=== PATIENT | female | born 1995 | race American Indian/Alaskan Native ===

== ENCOUNTER 2017-11-04 00:16 | Emergency (ER) | payer OTHER ==
[2017-11-04 00:39] VITALS: BP 123/84
[2017-11-04] MEDS ORDERED: Bacitracin Oint 1 GM U/D Packet TOP ONE (00:50)
--- NOTE | 2017-11-04 00:55 | EDM.PDOC ---
ED HPI GENERAL MEDICAL PROBLEM - General Chief Complaint: Lower Extremity Injury/Pain Stated Complaint: FELL [id number] Time Seen by Provider: 11/04/17 00:50 Source of Information: Reports: Patient History Limitations: Reports: No Limitations - History of Present Illness INITIAL COMMENTS - FREE TEXT/NARRATIVE: tripped fell onto left knee and injured foot also. prefer not to have x-rays done. 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 ED EXAM, GENERAL - Physical Exam Exam: See Below Exam Limited By: No Limitations General Appearance: Alert, WD/WN, No Apparent Distress Ears: Hearing Grossly Normal Throat/Mouth: Normal Voice, No Airway Compromise Head: Atraumatic Neck: Non-Tender, Full Range of Motion Respiratory/Chest: No Respiratory Distress Cardiovascular: Regular Rate, Rhythm GI/Abdominal: Soft, Non-Tender Extremities: Other (left knee contused with spfl abrasion, NV wnl, good ROM, left foot dorsum spfl abrasion good ROM, minimal swelling. gait limited to discomfort) Neurological: Alert, Oriented, Normal Cognition, No Motor/Sensory Deficits Psychiatric: Normal Affect, Normal Mood Skin Exam: Warm, Dry, Normal Color Lymphatic: No Adenopathy Course - Vital Signs Last Recorded V/S: Last Vital Signs Temp 36.4 C 11/04/17 00:32 Pulse 100 11/04/17 00:32 Resp 14 11/04/17 00:32 BP 123/84 11/04/17 00:32 Pulse Ox 100 11/04/17 00:32 Departure - Departure Time of Disposition: 00:52 Disposition: Home, Self-Care 01 Condition: Good Clinical Impression: Abrasion, foot w/o infection Contusion of knee, left Qualifiers: Encounter type: initial encounter Qualified Code(s): S80.02XA - Contusion of left knee, initial encounter Abrasion of knee, left Qualifiers: Encounter type: initial encounter Qualified Code(s): S80.212A - Abrasion, left knee, initial encounter - Discharge Information Instructions: Contusion, [id number] Additional Instructions: 1) keep wound clean dry 2) elevate leg as much as possible next few days 3) recheck as needed
== END 2017-11-04 01:04 | disposition home or self-care (01) ==
LOC: DL.ED 00:16
DX: S80.02XA Contusion of left knee, initial encounter (principal); W01.0XXA Fall on same level from slipping, tripping and stumbling without subsequent striking against object, initial encounter
CPT/HCPCS: 99282; 99283

== ENCOUNTER 2018-12-06 05:31 | Emergency (ER) | payer MEDICAID, OTHER ==
[2018-12-06 05:40] VITALS: BP 101/74; PULSE 88
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
== END 2018-12-06 06:43 | disposition home or self-care (01) ==
LOC: DL.ED 05:31
DX: S00.83XA Contusion of other part of head, initial encounter (principal); Z86.2 Personal history of diseases of the blood and blood-forming organs and certain disorders involving the immune mechanism; F17.210 Nicotine dependence, cigarettes, uncomplicated; Y04.0XXA Assault by unarmed brawl or fight, initial encounter
CPT/HCPCS: 70450; 70486; 81025; 99284-25

== ENCOUNTER 2019-10-26 15:56 | Emergency (ER) | payer MEDICAID, OTHER ==
[2019-10-26 16:26] VITALS: BP 147/63; PULSE 88
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
== END 2019-10-26 16:35 | disposition left against medical advice (07) ==
LOC: DL.ED 15:56
DX: S62.022A Displaced fracture of middle third of navicular [scaphoid] bone of left wrist, initial encounter for closed fracture (principal); T74.11XA Adult physical abuse, confirmed, initial encounter; S40.022D Contusion of left upper arm, subsequent encounter; S40.021D Contusion of right upper arm, subsequent encounter; S80.11XD Contusion of right lower leg, subsequent encounter; S80.12XD Contusion of left lower leg, subsequent encounter; S10.93XD Contusion of unspecified part of neck, subsequent encounter; S20.219D Contusion of unspecified front wall of thorax, subsequent encounter
CPT/HCPCS: 73110-LT; 99284

== ENCOUNTER 2020-06-02 13:45 | Emergency (ER) | payer MEDICAID ==
[2020-06-02 14:11] VITALS: BP 121/76; PULSE 98
--- NOTE | 2020-06-02 15:16 | EDM.PDOC ---
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 The patient states she is L1 with a LMP of 02/19/2020. The patient states she is approximately 8 weeks along via measurement taken on an ultrasound on 05/13/20, however with her LMP she should be approximately 15 weeks. The patient states she noted lower bilateral abdominal cramping this morning along with vaginal bleeding; she is passing clots, as well. She states she presented to the [facility] this morning when she first noted the bleeding and HCG and Hgb levels were drawn, however no US was performed. The patient states she continued to bleed into the afternoon and became worried so presented here. She denies recent illness, fever, shaking chills, fatigue, palpitations, nausea, vomiting, diarrhea, dysuria, or hematuria. She denies complications with her previous . She denies tobacco, alcohol, or recreational drug use. 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, Hematologic History: Reports: Anemia - Infectious Disease History Infectious Disease History: Reports: None - Past Surgical History GI Surgical History: Reports: None Social & Family History - Family History Family Medical History: No Pertinent Family History - Tobacco Use Tobacco Use Status *Q: Never Tobacco User - Caffeine Use Caffeine Use: Reports: Coffee Other Caffeine Use: red bull once in a while - Recreational Drug Use Recreational Drug Use: No - Living Situation & Occupation Living situation: Reports: with Significant Other Occupation: Unemployed ED ROS GENERAL - Review of Systems Review Of Systems: Comprehensive ROS is negative, except as noted in HPI. ED EXAM - Physical Exam Exam: See Below Exam Limited By: No Limitations General Appearance: Alert, No Apparent Distress, Thin, Other (Withdrawn) Eye Exam: Bilateral Eye: EOMI, Normal Inspection, PERRL (3mm) Throat/Mouth: Normal Inspection, Normal Voice, No Airway Compromise Head: Atraumatic, Normocephalic Neck: Normal Inspection, Supple, Non-Tender, Full Range of Motion Respiratory/Chest: No Respiratory Distress, Lungs Clear, Normal Breath Sounds, No Accessory Muscle Use, Chest Non-Tender Cardiovascular: Normal Peripheral Pulses, Regular Rate, Rhythm, No Edema, No Gallop, No JVD, No Murmur, No Rub GI/Abdominal Exam: Normal Bowel Sounds, Soft, Non-Tender, No Distention, No Mass, Pelvis Stable Rectal Exam: Deferred (Female) Exam: Vaginal Bleeding, Other (Speculum exam deferred due to spontaneous confirmed via US) Heart Tones: No: Not [place] (Did not check for tones as spontaneous was confirmed via US) Movement: Not Appreciated Back Exam: Normal Inspection, Full Range of Motion. No: CVA Tenderness (L), CVA Tenderness (R) Extremities: Normal Inspection, Normal Range of Motion, Non-Tender, Normal Capillary Refill, No Pedal Edema Neurological: Alert, Oriented, CN II-XII Intact, Normal Cognition, Normal Gait, No Motor/Sensory Deficits Psychiatric: Normal Affect, Depressed Mood, Tearful Skin Exam: Warm, Dry, Intact, Normal Color, No Rash. No: Ecchymosis, Erythema, Jaundice, Mottled, Pallor, Petechiae Course - Vital Signs Last Recorded V/S: Last Vital Signs Temp 98.4 F 06/02/20 14:07 Pulse 98 06/02/20 14:07 Resp 14 06/02/20 14:07 BP 121/76 06/02/20 14:07 Pulse Ox 100 06/02/20 14:07 - Orders/Labs/Meds Labs: Laboratory Tests 06/02/20 06/02/20 06/02/20 Range/Units 14:44 14:50 14:50 WBC 9.5 (5.0-10.0) 10^3/uL RBC 3.92 L (4.2-5.4) 10^6/uL Hgb 13.2 D (12.0-16.0) g/dL Hct 37.5 (37.0-47.0) % MCV 95.7 (80-100) fL MCH 33.7 (27.0-34.0) pg MCHC 35.2 H (33.0-35.0) g/dL Plt Count 311 D (150-450) 10^3/uL Neut % (Auto) 67.2 (42.2-75.2) % Lymph % (Auto) 22.7 (20.5-50.1) % [place] % (Auto) 7.7 (2-8) % Eos % (Auto) 2.0 (1.0-3.0) % Baso % (Auto) 0.4 (0.0-1.0) % Sodium (136-145) mmol/L Potassium (3.5-5.1) mmol/L Chloride (98-107) mmol/L Carbon Dioxide (21-32) mmol/L Anion Gap (7-13) mEq/L BUN (7-18) mg/dL Creatinine (0.55-1.02) mg/dL Est Cr Clr Drug Dosing mL/min Estimated GFR (MDRD) BUN/Creatinine Ratio (No establ ref range) Glucose (74-99) mg/dL Calcium (8.5-10.1) mg/dL Total Bilirubin (0.2-1.0) mg/dL AST (15-37) U/L ALT (14-59) U/L Alkaline Phosphatase (46-116) U/L Total Protein (6.4-8.2) g/dL Albumin (3.4-5.0) g/dL Globulin Albumin/Globulin Ratio HCG, Quant 4647 H (0-6) mIU/mL Urine Color Yellow (YELLOW) Urine Appearance Clear (CLEAR) Urine pH 7.0 (5.0-9.0) Ur Specific [place] 1.025 (1.005-1.030) Urine Protein Negative (NEGATIVE) Urine Glucose (UA) Negative (NEGATIVE) Urine Ketones Negative (NEGATIVE) Urine Occult Blood Large H (NEGATIVE) Urine Nitrite Negative (NEGATIVE) Urine Bilirubin Negative (NEGATIVE) Urine Urobilinogen 0.2 (0.2-1.0) mg/dL Ur Leukocyte Esterase Negative (NEGATIVE) Urine RBC 50-75 H /HPF Urine WBC Not seen (0-5/HPF) /HPF Ur Epithelial Cells Few (NOT SEEN) /HPF Urine Bacteria Rare (0-FEW/HPF) /HPF 06/02/20 Range/Units 14:50 WBC (5.0-10.0) 10^3/uL RBC (4.2-5.4) 10^6/uL Hgb (12.0-16.0) g/dL Hct (37.0-47.0) % MCV (80-100) fL MCH (27.0-34.0) pg MCHC (33.0-35.0) g/dL Plt Count (150-450) 10^3/uL Neut % (Auto) (42.2-75.2) % Lymph % (Auto) (20.5-50.1) % [place] % (Auto) (2-8) % Eos % (Auto) (1.0-3.0) % Baso % (Auto) (0.0-1.0) % Sodium 142 (136-145) mmol/L Potassium 4.0 (3.5-5.1) mmol/L Chloride 105 (98-107) mmol/L Carbon Dioxide 26 (21-32) mmol/L Anion Gap 15.0 H (7-13) mEq/L BUN 15 (7-18) mg/dL Creatinine 0.73 (0.55-1.02) mg/dL Est Cr Clr Drug Dosing 111.24 mL/min Estimated GFR (MDRD) > 60 BUN/Creatinine Ratio 20.5 (No establ ref range) Glucose 86 (74-99) mg/dL Calcium 8.3 L (8.5-10.1) mg/dL Total Bilirubin 0.3 (0.2-1.0) mg/dL AST 17 (15-37) U/L ALT 23 (14-59) U/L Alkaline Phosphatase 82 (46-116) U/L Total Protein 7.2 (6.4-8.2) g/dL Albumin 3.3 L (3.4-5.0) g/dL Globulin 3.9 Albumin/Globulin Ratio 0.85 HCG, Quant (0-6) mIU/mL Urine Color (YELLOW) Urine Appearance (CLEAR) Urine pH (5.0-9.0) Ur Specific [place] (1.005-1.030) Urine Protein (NEGATIVE) Urine Glucose (UA) (NEGATIVE) Urine Ketones (NEGATIVE) Urine Occult Blood (NEGATIVE) Urine Nitrite (NEGATIVE) Urine Bilirubin (NEGATIVE) Urine Urobilinogen (0.2-1.0) mg/dL Ur Leukocyte Esterase (NEGATIVE) Urine RBC /HPF Urine WBC (0-5/HPF) /HPF Ur Epithelial Cells (NOT SEEN) /HPF Urine Bacteria (0-FEW/HPF) /HPF - Re-Assessments/Exams Free Text/Narrative Re-Assessment/Exam: 06/02/20 Vaginal US confirms spontaneous ; gestation sac without pole appreciated, enlarged uterus largely empty. Hcg stable at 13.2. No evidence of infection as WBC 9.5 without left shift. UA unremarkable. Hcg low for approximate gestation at 4647. Tracie and her boyfriend were updated on the results of lab work and imaging, including the confirmation of spontaneous . All questions answered and red flags signs and symptoms which would warrant immediate reevaluation reviewed. Patient instructed to follow up with her primary care provider, or OBGYN, in seven days. Patient and boyfriend verbalized understanding and agreement with the plan of care. Departure - Departure Time of Disposition: 15:26 Disposition: Home, Self-Care 01 Condition: Good Clinical Impression: Spontaneous - Discharge Information *PRESCRIPTION DRUG MONITORING PROGRAM REVIEWED*: Not Applicable *COPY OF PRESCRIPTION DRUG MONITORING REPORT IN PATIENT ES: Not Applicable Instructions: Miscarriage, [id number], Managing Loss Forms: ED Department Discharge Additional Instructions: 1.) Follow up with your primary care provider, or OBGYN, in seven days regarding today's visit for recheck of labs and imaging (as warranted). 2.) Should you begin to experience significant bleeding, saturating a pad in less than one hour, times two hours, return to the emergency department. 3.) You may take ibuprofen (Motrin/Advil) 400mg every six hours for abdominal cramping. You may also take acetaminophen (Tylenol) 650mg every six hours, for abdominal cramps. You may stagger these medication so you are taking a dose of medication every three hours. 4.) You may apply a heat pack to your abdomen and lower back to help alleviate cramping. Sepsis Event Note (ED) - Evaluation Sepsis Screening Result: No Definite Risk
--- NOTE | 2020-06-02 15:23 | US ---
EXAMINATION: OB 1st Tri Sgl 1st Gest SEX: Female AGE: 25 years CLINICAL HISTORY: 25-year-old "gravid" female with vaginal bleeding during (passing clots). Aspect. 3. March 06, 2020 and estimated date of delivery 24 November 2020 i.e. possibly 15 week gestation by dates. Interpretation: Abnormal. 1. Midline mildly enlarged uterus is EMPTY. 2. Clearly demonstrated central gestational sac without intrauterine pole (no heart beat). 3. No subchorionic hemorrhage or hematoma. 4. No abnormal adnexal mass lesions. No free fluid in the cul-de-sac.
[2020-06-02 15:24] LABS: CHLORIDE,CL 105 mmol/L (98-107); SODIUM,NA 142 mmol/L (136-145)
== END 2020-06-02 15:42 | disposition home or self-care (01) ==
LOC: DL.ED 13:45
DX: O03.9 Complete or unspecified spontaneous abortion without complication (principal)
CPT/HCPCS: 36415; 76801; 80053; 81001; 84702; 85025; 99284; 99284-25

== ENCOUNTER 2021-05-16 23:07 | Inpatient (IN) | payer MEDICAID ==
[2021-05-17] MEDS ORDERED: Naloxone 2 MG/2 ML Syringe IVPUSH PRN (00:17)
[2021-05-17] MEDS ORDERED: Sodium Chloride 0.9% 10 ML Syringe FLUSH PRN ×2 (00:17→06:16)
[2021-05-17] MEDS ORDERED: Promethazine 25 MG/ML SDV IM PRN (00:17)
[2021-05-17] MEDS ORDERED: Ondansetron 4 MG/2 ML SDV IVPUSH PRN ×2 (00:17)
[2021-05-17] MEDS ORDERED: Nalbuphine 10 MG/1 ML Vial IM PRN (00:17)
[2021-05-17] MEDS ORDERED: Carboprost Tromethamine 250 MCG/1 ML Amp IM PRN ×2 (00:17→06:16)
[2021-05-17] MEDS ORDERED: Lactated Ringers 1,000 ML IV ONE (00:17)
[2021-05-17] MEDS ORDERED: Lidocaine 1% 30 ML SDV INJECT PRN (00:17)
[2021-05-17] MEDS ORDERED: Misoprostol 400 MCG (4 X 100 MCG TAB) RECTAL PRN ×2 (00:17→06:16)
[2021-05-17] MEDS ORDERED: ePHEDrine 50 MG/ML SDV IVPUSH PRN (00:17)
[2021-05-17] MEDS ORDERED: Tranexamic Acid 1,000 MG in Sodium Chloride 0.9% 100 ML IV PRN ×2 (00:17→06:16)
[2021-05-17] MEDS ORDERED: Acetaminophen 325 MG Tab PO PRN (00:17)
[2021-05-17] MEDS ORDERED: Methylergonovine 0.2 MG/1 ML Amp IM PRN (00:17)
[2021-05-17] MEDS ORDERED: Oxytocin/Normal Saline 30 UNIT/500 ML BAG IV SCH (00:30)
[2021-05-17] MEDS ORDERED: Lactated Ringers 1,000 ML IV SCH (00:30)
[2021-05-17] MEDS ORDERED: Lactated Ringers 500 ML IV SCH ×2 (00:30)
[2021-05-17] MEDS ORDERED: fentaNYL 100 MCG/2 ML SDV ITHECAL ONE (04:04)
[2021-05-17] MEDS ORDERED: fentaNYL 100 MCG/2 ML SDV ONE (04:04)
[2021-05-17] MEDS ORDERED: EPINEPHrine 1 MG/ML SDV ONE ×2 (04:04)
[2021-05-17] MEDS ORDERED: Benzocaine/Menthol 20%-0.5% Spray 78 GM Cannister TOP PRN (06:16)
[2021-05-17] MEDS ORDERED: Oxytocin 10 Units/1 ML SDV IM PRN (06:16)
[2021-05-17] MEDS ORDERED: Simethicone 80 MG Tab.Chew PO PRN (06:16)
[2021-05-17] MEDS: Ferrous Sulfate 325 MG Tab PO SCH ×2 (10:31→18:26)
[2021-05-17] MEDS: Prenatal Multivitamin with Calcium/Folic Acid/Iron Tab PO SCH (10:31)
[2021-05-17] MEDS: Docusate Sodium 100 MG Cap PO PRN ×2 (10:31→20:38)
[2021-05-17] MEDS: Ibuprofen 800 MG Tab PO PRN ×2 (12:33→20:38)
[2021-05-17] MEDS: Acetaminophen 325 MG Tab PO PRN (14:56)
[2021-05-18] MEDS: Acetaminophen 325 MG Tab PO PRN ×2 (00:16→08:10)
[2021-05-18] MEDS: Ibuprofen 800 MG Tab PO PRN (04:57)
[2021-05-18] MEDS: Docusate Sodium 100 MG Cap PO PRN (08:09)
[2021-05-18] MEDS: Ferrous Sulfate 325 MG Tab PO SCH (08:09)
[2021-05-18] MEDS: Prenatal Multivitamin with Calcium/Folic Acid/Iron Tab PO SCH (08:09)
[2021-05-18 08:51] VITALS: BP 131/79; PULSE 67
== END 2021-05-18 10:15 | disposition home or self-care (01) | DRG 805 ==
LOC: DL.OBCHECK 23:07 → DL.OB 05-17 02:35
PROVIDERS: ADMIT Family Medicine; ATTEND Family Medicine
PROC: 10E0XZZ Delivery of Products of Conception, External Approach (ICD-10-PCS; principal; 2021-05-17)
PROC: 0HQ9XZZ Repair Perineum Skin, External Approach (ICD-10-PCS; 2021-05-17)
PROC: 3E0P7VZ Introduction of Hormone into Female Reproductive, Via Natural or Artificial Opening (ICD-10-PCS; 2021-05-17)
PROC: 3E0R3BZ Introduction of Anesthetic Agent into Spinal Canal, Percutaneous Approach (ICD-10-PCS; 2021-05-17)
PROC: 00HU33Z Insertion of Infusion Device into Spinal Canal, Percutaneous Approach (ICD-10-PCS; 2021-05-17)
PROC: 10907ZC Drainage of Amniotic Fluid, Therapeutic from Products of Conception, Via Natural or Artificial Opening (ICD-10-PCS; 2021-05-17)
DX: O99.02 Anemia complicating childbirth (principal); U07.1 COVID-19; Z37.0 Single live birth; O98.52 Other viral diseases complicating childbirth; D64.9 Anemia, unspecified; O77.0 Labor and delivery complicated by meconium in amniotic fluid; O70.0 First degree perineal laceration during delivery; Z3A.39 39 weeks gestation of pregnancy; Z28.82 Immunization not carried out because of caregiver refusal
CPT/HCPCS: 36415; 59409; 84112; 85027; A9270-GY; J0171; J2300; J2590; J3010; J7120; U0002

== ENCOUNTER 2021-11-08 12:48 | Emergency (ER) | payer MEDICAID ==
[2021-11-08 12:51] VITALS: BP 149/99; PULSE 124
== END 2021-11-08 13:42 | disposition left against medical advice (07) ==
LOC: DL.ED 12:48
DX: R51.9 Headache, unspecified (principal); F17.210 Nicotine dependence, cigarettes, uncomplicated
CPT/HCPCS: 36415; 84703; 99284

== ENCOUNTER 2022-02-27 11:31 | Emergency (ER) | payer MEDICAID ==
[2022-02-27 11:57] VITALS: BP 149/78; PULSE 87
[2022-02-27 12:40] LABS: AMPHETAMINES,URINE NEGATIVE (NEGATIVE); BARBITURATES,URINE NEGATIVE (NEGATIVE); BENZODIAZEPINE,URINE NEGATIVE (NEGATIVE); MDMA (ECSTASY), URINE NEGATIVE (NEGATIVE); METHADONE,URINE NEGATIVE (NEGATIVE); METHAMPHETAMINES,URINE NEGATIVE (NEGATIVE); OPIATES,URINE NEGATIVE (NEGATIVE); OXYCODONE,URINE NEGATIVE (NEGATIVE); PHENCYCLIDINE,URINE NEGATIVE (NEGATIVE); TCA,URINE NEGATIVE (NEGATIVE)
[2022-02-27 12:42] LABS: ACETAMINOPHEN 0 ug/mL (10-30 (Therapeutic)); ANION GAP 12.1 mEq/L (7-13); CHLORIDE,CL 105 mmol/L (98-107); ESTIMATED GFR 126 mL/min (>=60); SODIUM,NA 137 mmol/L (136-145)
== END 2022-02-27 13:05 | disposition home or self-care (01) ==
LOC: DL.ED 11:31
DX: Z02.89 Encounter for other administrative examinations (principal); Z20.822 Contact with and (suspected) exposure to COVID-19
CPT/HCPCS: 36415; 80053; 80143; 80179; 80305-QW; 80307; 81001; 83735; 85025; 87086; 87088; 87186; 99283; U0002

== ENCOUNTER 2022-04-16 15:21 | Emergency (ER) | payer MEDICAID | END 2022-04-16 15:41 | disposition left against medical advice (07) | LOC: DL.ED 15:21 | DX: Z53.21 Procedure and treatment not carried out due to patient leaving prior to being seen by health care provider (principal) ==

== ENCOUNTER 2022-04-22 06:27 | Inpatient (IN) | payer MEDICAID ==
[2022-04-22 07:35] LABS: AMPHETAMINES,URINE NEGATIVE (NEGATIVE); BARBITURATES,URINE NEGATIVE (NEGATIVE); BENZODIAZEPINE,URINE NEGATIVE (NEGATIVE); MDMA (ECSTASY), URINE NEGATIVE (NEGATIVE); METHADONE,URINE NEGATIVE (NEGATIVE); METHAMPHETAMINES,URINE NEGATIVE (NEGATIVE); OPIATES,URINE NEGATIVE (NEGATIVE); OXYCODONE,URINE NEGATIVE (NEGATIVE); PHENCYCLIDINE,URINE NEGATIVE (NEGATIVE); TCA,URINE NEGATIVE (NEGATIVE)
[2022-04-22] MEDS ORDERED: Sodium Chloride 0.9% 10 ML Syringe FLUSH PRN ×2 (08:34→16:27)
[2022-04-22] MEDS ORDERED: Ondansetron 4 MG/2 ML SDV IVPUSH PRN ×2 (08:34→14:41)
[2022-04-22] MEDS ORDERED: Lactated Ringers 1,000 ML IV ONE (08:34)
[2022-04-22] MEDS ORDERED: Carboprost Tromethamine 250 MCG/1 ML Amp IM PRN (08:34)
[2022-04-22] MEDS ORDERED: Methylergonovine 0.2 MG/1 ML Amp IM PRN (08:34)
[2022-04-22] MEDS ORDERED: Misoprostol 400 MCG (4 X 100 MCG TAB) RECTAL PRN (08:34)
[2022-04-22] MEDS ORDERED: Acetaminophen 325 MG Tab PO PRN (08:34)
[2022-04-22] MEDS ORDERED: Lidocaine 1% 30 ML SDV INJECT PRN (08:34)
[2022-04-22] MEDS ORDERED: Tranexamic Acid 1,000 MG in Sodium Chloride 0.9% 100 ML IV PRN (08:34)
[2022-04-22] MEDS ORDERED: Oxytocin/Normal Saline 30 UNIT/500 ML BAG IV SCH ×2 (08:45)
[2022-04-22] MEDS: Lactated Ringers 1,000 ML IV SCH ×2 (09:01→14:05)
[2022-04-22] MEDS: fentaNYL 100 MCG/2 ML SDV IVPUSH PRN ×2 (11:55→12:53)
[2022-04-22] MEDS ORDERED: EPINEPHrine 1 MG/ML SDV ONE (13:05)
[2022-04-22] MEDS ORDERED: Dexmedetomidine 200 MCG/2 ML SDV ONE (13:06)
[2022-04-22] MEDS ORDERED: Sodium Bicarbonate 4.2% 2.5 MEQ/5 ML SDV ONE (13:06)
[2022-04-22] MEDS: Sodium Chloride 0.9% 10 ML Syringe FLUSH SCH ×2 (13:06→21:04)
[2022-04-22] MEDS ORDERED: ePHEDrine 50 MG/ML SDV IVPUSH PRN (14:41)
[2022-04-22] MEDS ORDERED: Promethazine 25 MG/ML SDV IM PRN (14:41)
[2022-04-22] MEDS ORDERED: Naloxone 2 MG/2 ML Syringe IVPUSH PRN (14:41)
[2022-04-22] MEDS ORDERED: Lactated Ringers 500 ML IV SCH ×2 (14:45)
[2022-04-22] MEDS ORDERED: Benzocaine/Menthol 20%-0.5% Spray 78 GM Cannister TOP PRN (16:27)
[2022-04-22] MEDS ORDERED: Oxytocin 10 Units/1 ML SDV IM PRN (16:27)
[2022-04-22] MEDS ORDERED: Zolpidem 5 MG Tab PO PRN (16:27)
[2022-04-22] MEDS: Ibuprofen 800 MG Tab PO PRN (20:58)
[2022-04-23] MEDS: Acetaminophen 325 MG Tab PO PRN ×3 (01:44→20:15)
[2022-04-23] MEDS: Prenatal Multivitamin with Calcium/Folic Acid/Iron Tab PO SCH ×2 (07:23→09:52)
[2022-04-23] MEDS: Ibuprofen 800 MG Tab PO PRN ×3 (07:24→22:39)
[2022-04-23] MEDS: Docusate Sodium 100 MG Cap PO PRN ×2 (07:24→20:16)
[2022-04-23] MEDS ORDERED: Ferrous Sulfate 325 MG Tab PO SCH (08:30)
[2022-04-23] MEDS: Ferrous Sulfate 325 MG Tab PO SCH (09:58)
[2022-04-23] MEDS: Sodium Chloride 0.9% 10 ML Syringe FLUSH SCH (10:00)
[2022-04-23] MEDS: Simethicone 80 MG Tab.Chew PO PRN ×3 (14:53→22:41)
[2022-04-24] MEDS: Acetaminophen 325 MG Tab PO PRN ×2 (06:47→11:28)
[2022-04-24] MEDS: Ferrous Sulfate 325 MG Tab PO SCH ×2 (06:47→09:56)
[2022-04-24] MEDS: Prenatal Multivitamin with Calcium/Folic Acid/Iron Tab PO SCH ×2 (06:50→09:56)
[2022-04-24 08:25] VITALS: BP 124/79; PULSE 87
[2022-04-24] MEDS: Ibuprofen 800 MG Tab PO PRN (11:28)
== END 2022-04-24 13:15 | disposition home or self-care (01) | DRG 806 ==
LOC: DL.OBCHECK 06:27 → DL.MS 07:15 → DL.OB 07:15 → UNDOADMIN 07:15
PROVIDERS: ADMIT Family Medicine; ATTEND Family Medicine
PROC: 10E0XZZ Delivery of Products of Conception, External Approach (ICD-10-PCS; principal; 2022-04-22)
DX: O99.02 Anemia complicating childbirth (principal); Z3A.38 38 weeks gestation of pregnancy; Z37.0 Single live birth; D62 Acute posthemorrhagic anemia; O71.3 Obstetric laceration of cervix; O99.324 Drug use complicating childbirth; F19.90 Other psychoactive substance use, unspecified, uncomplicated; O69.81X0 Labor and delivery complicated by cord around neck, without compression, not applicable or unspecified; Z20.822 Contact with and (suspected) exposure to COVID-19
CPT/HCPCS: 01967; 36415; 51701; 59409; 80305-QW; 85027; A9270-GY; J2405; J2590; J3010; J3490; J7120; U0002

== ENCOUNTER 2023-01-09 19:26 | Emergency (ER) | payer MEDICAID ==
[2023-01-09 20:00] VITALS: BP 135/91; PULSE 98
[2023-01-09] MEDS ORDERED: Diphtheria,Pertussis(Acell),Tetanus Vaccine 0.5 ML Syringe IM ONE (20:03)
[2023-01-09] MEDS ORDERED: Ibuprofen 600 MG Tab PO ONE (20:03)
[2023-01-09] MEDS ORDERED: Ciprofloxacin 500 MG Tab PO ONE (21:01)
[2023-01-09] MEDS ORDERED: Bacitracin Oint 1 GM U/D Packet TOP ONE (21:03)
[2023-01-09] MEDS ORDERED: Cephalexin 500 MG Cap PO ONE (21:05)
== END 2023-01-09 21:17 | disposition home or self-care (01) ==
LOC: DL.ED 19:26
DX: S91.232A Puncture wound without foreign body of left great toe with damage to nail, initial encounter (principal); F17.210 Nicotine dependence, cigarettes, uncomplicated; Z79.899 Other long term (current) drug therapy; Z23 Encounter for immunization; Z86.16 Personal history of COVID-19; W45.0XXA Nail entering through skin, initial encounter
CPT/HCPCS: 73630; 90471; 90715; 99283; A9270